=== PATIENT | male | born 1970 | race Caucasian/White ===

== ENCOUNTER 2019-03-29 20:42 | Inpatient (IN) | payer SELFPAY ==
[~2019-03-29] VITALS: Ht 172.7 cm; Wt 77.7 kg
--- NOTE | 2019-03-29 21:05 | Emergency Room Report ---
History of Present Illness General Chief Complaint: Dizziness Source: Patient, EMS Present Illness HPI Patient is a 48-year-old male presents after increased dizziness with standing. Patient had intermittent episodes which improved with supine position. He reports having feeling of dizziness and lightheadedness. He states after lying down he would start to feel better. Patient states that he has had several episodes in the past. He reports having been a smoker. He denies any chest discomfort. He reports having no current symptoms at this time. Patient states that this has intermittent happened in the past. He reports having a normal urine output.Patient denies any vomiting or diarrhea.Patient reports having trouble to [place] from [facility] approximately 2 weeks ago by bus. He was noted to have some discomfort to his left knee. Allergies: Coded Allergies: No Known Allergies (Unverified , 03/29/19) Patient History Past Medical History: see triage record Reviewed Nursing Documentation: PMH: Agreed; PSxH: Agreed Nursing Documentation-PMH Past Medical History: No Stated History Review of Systems All Other Systems: negative except mentioned in HPI Physical Exam Vital Signs Date Time Temp Pulse Resp B/P (MAP) Pulse Ox O2 Delivery O2 Flow Rate FiO2 03/29/19 20:46 98.4 76 18 110/74 (86) 98 Room Air Sp02 EP Interpretation: reviewed, normal General Appearance: normal inspection, well appearing, no apparent distress, alert, GCS 15 Head: atraumatic ENT: normal ENT inspection, hearing grossly normal, normal voice, other - poor dentition Neck: normal inspection, full range of motion, supple, no bony tend Respiratory: normal inspection, lungs clear, normal breath sounds, no respiratory distress, no retraction, no wheezing Cardiovascular #1: regular rate, rhythm, no edema Gastrointestinal: normal inspection, normal bowel sounds, non tender, soft, no guarding, no hernia Genitourinary: no CVA tenderness Musculoskeletal: normal inspection, back normal, normal range of motion, other - left knee cyst near patella Neurologic: normal inspection, alert, oriented x3, responsive, 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 Differential diagnosis include was not limited to dehydration, myocardial infarction, pulmonary embolism, anemia among others. Because of complexity of patient's case laboratory testing and imaging studies were ordered. Patient's laboratory testing showed normal hemoglobin as well as negative troponin. Patient was noted to have elevated d-dimer. CT imaging was ordered due to patient's prior history of recent travel which raises possibility of pulmonary embolism. CT of the chest read by radiology showed right sided pulmonary embolism without significant infiltrate or strain noted.Patient was given IV fluids. Patient was started on a heparin drip. Dr. Lisa Mitchell was contacted for inpatient management Labs Test 03/29/19 21:20 03/29/19 23:05 White Blood Count 8.2 K/UL (4.8-10.8) Red Blood Count 5.12 M/UL (4.70-6.10) Hemoglobin 14.6 G/DL (14.2-18.0) Hematocrit 41.9 % (42.0-52.0) Mean Corpuscular Volume 82 FL (80-99) Mean Corpuscular Hemoglobin 28.5 PG (27.0-31.0) Mean Corpuscular Hemoglobin Concent 34.8 G/DL (32.0-36.0) Red Cell Distribution Width 11.5 % (11.6-14.8) Platelet Count 266 K/UL (150-450) Mean Platelet Volume 5.3 FL (6.5-10.1) Neutrophils (%) (Auto) 64.3 % (45.0-75.0) Lymphocytes (%) (Auto) 27.4 % (20.0-45.0) Monocytes (%) (Auto) 6.1 % (1.0-10.0) Eosinophils (%) (Auto) 1.4 % (0.0-3.0) Basophils (%) (Auto) 0.8 % (0.0-2.0) D-Dimer 0.98 mg/L FEU (0.00-0.49) Sodium Level 141 MMOL/L (136-145) Potassium Level 3.7 MMOL/L (3.5-5.1) Chloride Level 104 MMOL/L (98-107) Carbon Dioxide Level 33 MMOL/L (21-32) Anion Gap 4 mmol/L (5-15) Blood Urea Nitrogen 14 mg/dL (7-18) Creatinine 1.1 MG/DL (0.55-1.30) Estimat Glomerular Filtration Rate > 60 mL/min (>60) Glucose Level 129 MG/DL (74-106) Calcium Level 9.4 MG/DL (8.5-10.1) Total Bilirubin 0.4 MG/DL (0.2-1.0) Aspartate Amino Transf (AST/SGOT) 21 U/L (15-37) Alanine Aminotransferase (ALT/SGPT) 33 U/L (12-78) Alkaline Phosphatase 66 U/L (46-116) Troponin I 0.002 ng/mL (0.000-0.056) Total Protein 6.9 G/DL (6.4-8.2) Albumin 3.9 G/DL (3.4-5.0) Globulin 3.0 g/dL Albumin/Globulin Ratio 1.3 (1.0-2.7) Urine Color Yellow Urine Appearance Clear Urine pH 6 (4.5-8.0) Urine Specific [place] 1.020 (1.005-1.035) Urine Protein 1+ (NEGATIVE) Urine Glucose (UA) Negative (NEGATIVE) Urine Ketones Negative (NEGATIVE) Urine Blood Negative (NEGATIVE) Urine Nitrite Positive (NEGATIVE) Urine Bilirubin Negative (NEGATIVE) Urine Urobilinogen 1 MG/DL (0.0-1.0) Urine Leukocyte Esterase 1+ (NEGATIVE) Urine RBC 0-2 /HPF (0 - 0) Urine WBC 0-2 /HPF (0 - 0) Urine Squamous Epithelial Cells None /LPF (NONE/OCC) Urine Bacteria Few /HPF (NONE) Urine Opiates Screen Negative (NEGATIVE) Urine Barbiturates Screen Negative (NEGATIVE) Phencyclidine (PCP) Screen Negative (NEGATIVE) Urine Amphetamines Screen Negative (NEGATIVE) Urine Benzodiazepines Screen Negative (NEGATIVE) Urine Cocaine Screen Negative (NEGATIVE) Urine Marijuana (THC) Screen Positive (NEGATIVE) EKG Diagnostic Results Rate: normal Rhythm: NSR ST Segments: no acute changes Last Vital Signs Date Time Temp Pulse Resp B/P (MAP) Pulse Ox O2 Delivery O2 Flow Rate FiO2 03/29/19 20:46 98.4 76 18 110/74 (86) 98 Room Air Status: improved Disposition: ADMITTED INPATIENT Condition: Stable Scripts No Active Prescriptions or Reported Meds Segun Laird MD Mar 29, 2019 21:05
--- NOTE | 2019-03-29 21:15 | NUR ---
ED Nurse Note: RECIEVED PT ON [facility] AWAKE, ALERT AND ORIENTED X 4, PT HERE WITH C/O ABD PAIN WITH NAUSEA AND VOMITING X 2 TODAY, PT DENIES CP, SOB, FEVERS OR DIARRHEA, RATES PAIN AT 8/10, PT DNIES ANY MEDICAL HISTORY BUT WHEN EXAMINED PT C/O HAVING CHEST PAIN, MD INFORMED, WILL RESUME CARE ORDERED AND CLOSELY MONITOR.
[2019-03-29 21:52] LABS: ANION GAP 4 mmol/L (5-15); BASOPHILS % (AUTO) 0.8 % (0.0-2.0); BLOOD UREA NITROGEN 14 mg/dL (7-18); CALCIUM 9.4 MG/DL (8.5-10.1); CARBON DIOXIDE 33 MMOL/L (21-32); CHLORIDE 104 MMOL/L (98-107); CREATININE 1.1 MG/DL (0.55-1.30); EOSINOPHILS % (AUTO) 1.4 % (0.0-3.0); HEMATOCRIT 41.9 % (42.0-52.0); HEMOGLOBIN 14.6 G/DL (14.2-18.0); LYMPHOCYTES % (AUTO) 27.4 % (20.0-45.0); MEAN CORPUSCULAR VOLUME 82 FL (80-99); MONOCYTES % (AUTO) 6.1 % (1.0-10.0); NEUTROPHILS % (AUTO) 64.3 % (45.0-75.0); PLATELET COUNT 266 K/UL (150-450); POTASSIUM 3.7 MMOL/L (3.5-5.1); RED BLOOD COUNT 5.12 M/UL (4.70-6.10); RED CELL DISTRIBUTION WIDTH 11.5 % (11.6-14.8); SODIUM 141 MMOL/L (136-145); WHITE BLOOD COUNT 8.2 K/UL (4.8-10.8)
[2019-03-29 21:57] LABS: ALANINE AMINOTRANSFERASE 33 U/L (12-78); ALBUMIN 3.9 G/DL (3.4-5.0); ALBUMIN/GLOBULIN RATIO 1.3 (1.0-2.7); ALKALINE PHOSPHATASE 66 U/L (46-116); ASPARTATE AMINO TRANSFERASE 21 U/L (15-37); BILIRUBIN,TOTAL 0.4 MG/DL (0.2-1.0)
[2019-03-29 22:15] VITALS: BP 119/74
[2019-03-29] MEDS ORDERED: Isovue-370 150ml vial INJ PRN (23:15)
[2019-03-29 23:34] LABS: APPEARANCE,URINE CLEAR; BILIRUBIN, URINE NEGATIVE (NEGATIVE); GLUCOSE, URINE (UA) NEGATIVE (NEGATIVE); KETONES,URINE NEGATIVE (NEGATIVE); LEUKOCYTE ESTERASE ,URINE 1+ (NEGATIVE); NITRITE,URINE POSITIVE (NEGATIVE); PH,URINE 6 (4.5-8.0); PROTEIN,URINE 1+ (NEGATIVE); UROBILINOGEN,URINE 1 MG/DL (0.0-1.0)
[2019-03-29 23:36] LABS: COLOR,URINE YELLOW
--- NOTE | 2019-03-29 23:40 | NUR ---
ED Nurse Note: PT CONTINUES TO REST IN BED QUIETLY, IV SITE PATENT, PT CONTINUES TO C/O HAVING CHEST PAIN AT 8/10, MD IS AWARE, V/S STABLE, PT IS CURRENTLY BEING TAKEN TO IMAGING FOR CTA, WILL RESUME CARE WHEN PT RETURNS TO DEPARTMENT.
[2019-03-30] VITALS (9 sets, daily range): BP systolic 90–108; BP diastolic 51–98
[2019-03-30] MEDS ORDERED: Heparin 5000 units/ml inj IV ONE (00:45)
[2019-03-30] MEDS ORDERED: Heparin 25,000u/D5W 500ml 500 ML IV SCH ×2 (00:45→09:37)
--- NOTE | 2019-03-30 01:45 | NUR ---
ED Nurse Note: PT COMPLETED CTA SCAN, + FOR PE, PT BED CHANGED FROM HALLWAY TO MONITORED BED, PT REMAINS AWAK, ALERT AND ORIENTED X 4, CONTINUES TO C/O CHEST PAIN AT 8/10, MD AWARE, PT TO START ON IV HEPARIN, PT ORDER PLACED, PT HAS PATENT IV LINE, HEPARIN DRIP STARTED ORDERED AFTER BOLUS GIVEN, PT TOLERATING WELL, WILL CONTINUE TO CLOSELY MONITOR AND PREAPRE FOR HOSPITAL ADMISSION.
--- NOTE | 2019-03-30 03:30 | NUR ---
ED Nurse Note: PT CONTINUES TO SLEEP QUIETLY, AROUSES EASILY TO VERBAL STIMULI, PT B/P WAS READING LOW BUT IS POSITIONAL, PT REPOSITIOND TO SUPINE AND B/P IS WNL, IV SITE PATENT WITH HEPARIN INFUSING, SITE INTACT AND PATENT, NO ACUTE CHAGNES OR INCREASED DISTRESS, WILL CONTINUE TO CLOSELY MONITOR AND PREPARE FOR HOSPITAL ADMISSION.
--- NOTE | 2019-03-30 05:00 | NUR ---
ED Nurse Note: left message for md krishna for admitting orders. awaiting callback.
--- NOTE | 2019-03-30 05:15 | NUR ---
ED Nurse Note: PT CONTINUES TO REST QUIETLY, NO DISTRESS OR CHANGES NOTED, HEPARIN IS INFUSING, NO BED AVAILABLE AT THIS TIME, WILL CONTINUE CARE AND MONITORING.
--- NOTE | 2019-03-30 07:10 | NUR ---
ED Nurse Note: recieved pt on bed, asleep. with vital signs with in normal limit. pt respiration equal and unlabored. pt heparin drip is on going. will continue to monitor.
--- NOTE | 2019-03-30 07:54 | NUR ---
ED Nurse Note: pt was admitted to hospital, report given to Cayden SALVADOR,
--- NOTE | 2019-03-30 08:06 | NUR ---
ED Nurse Note: pt was transfered to tele bed, all belongings endorsed to Cayden rn, pt transfered with stable vs.
--- NOTE | 2019-03-30 08:15 | NUR ---
NURSE NOTES: Pt received from Edelmira, RN alert and oriented x4 with no acute s/s of distress noted at this time. No complaints of chest pain or SOB. IV site asymptomatic and patent on R ac 20g, running to Heparin drip as ordered per protocol. sanitarian inspector on - SR. No wounds noted upon assessment. Belongings signed with transferring RN, all with patient at this time including [employer] phones. Bed in lowest position, call light and belongings within reach.
[2019-03-30] MEDS ORDERED: Acetaminophen 500mg (ES) tab ORAL PRN (09:00)
[2019-03-30] MEDS ORDERED: Heparin 5000 units/ml inj IV SCH ×2 (09:37→16:33)
--- NOTE | 2019-03-30 10:53 | Pulmonology Progress Note ---
Assessment/Plan Assessment/Plan Pulmonary Consultation HPI Patient is a 48-year-old male admitted with right sided Pulmonary Embolism, he presented complaining of increased dizziness with standing. Patient had intermittent episodes which improved with supine position. He reports having feeling of dizziness and lightheadedness. He reports having been a smoker. He denies any chest discomfort. He reports having no current symptoms at this time. Patient denies any vomiting or diarrhea.Patient reports having travel to [place] from [facility] approximately 2 weeks ago by bus. He has noted to have some discomfort to his left knee. Allergies: No Known Allergies Past Medical History: No Stated History All Other Systems: negative except mentioned in HPI Physical Exam Vital Signs Noted Date Time Temp Pulse Resp B/P (MAP) Pulse Ox O2 Delivery O2 Flow Rate FiO2 03/29/19 20:46 98.4 76 18 110/74 (86) 98 Room Air General Appearance: normal inspection, well appearing, no apparent distress, alert, GCS 15 Head: atraumatic ENT: normal ENT inspection, hearing grossly normal, normal voice, other - poor dentition Neck: normal inspection, full range of motion, supple, no bony tend Respiratory: normal inspection, lungs clear, normal breath sounds, no respiratory distress, no retraction, no wheezing Cardiovascular: HS1, HS2, normal, egular rate, rhythm, no edema Gastrointestinal: normal inspection, normal bowel sounds, non tender, soft, no guarding, no hernia Genitourinary: no CVA tenderness Musculoskeletal: normal inspection, back normal, normal range of motion, other - left knee cyst near patella Neurologic: normal inspection, alert, oriented x3, responsive, 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, speech normal Psychiatric: normal inspection, judgement/insight normal, mood/affect normal Skin: normal inspection, normal color, no rash Impression: Pulmonary embolism Plan: IV Heparin gtt Transition to coumadin Suggest Hematology Consult O2 PRN Volume challenge PRN for hypotension Monitor labs PPX Labs Test 03/29/19 21:20 03/29/19 23:05 White Blood Count 8.2 K/UL (4.8-10.8) Red Blood Count 5.12 M/UL (4.70-6.10) Hemoglobin 14.6 G/DL (14.2-18.0) Hematocrit 41.9 % (42.0-52.0) Mean Corpuscular Volume 82 FL (80-99) Mean Corpuscular Hemoglobin 28.5 PG (27.0-31.0) Mean Corpuscular Hemoglobin Concent 34.8 G/DL (32.0-36.0) Red Cell Distribution Width 11.5 % (11.6-14.8) Platelet Count 266 K/UL (150-450) Mean Platelet Volume 5.3 FL (6.5-10.1) Neutrophils (%) (Auto) 64.3 % (45.0-75.0) Lymphocytes (%) (Auto) 27.4 % (20.0-45.0) Monocytes (%) (Auto) 6.1 % (1.0-10.0) Eosinophils (%) (Auto) 1.4 % (0.0-3.0) Basophils (%) (Auto) 0.8 % (0.0-2.0) D-Dimer 0.98 mg/L FEU (0.00-0.49) Sodium Level 141 MMOL/L (136-145) Potassium Level 3.7 MMOL/L (3.5-5.1) Chloride Level 104 MMOL/L (98-107) Carbon Dioxide Level 33 MMOL/L (21-32) Anion Gap 4 mmol/L (5-15) Blood Urea Nitrogen 14 mg/dL (7-18) Creatinine 1.1 MG/DL (0.55-1.30) Estimat Glomerular Filtration Rate > 60 mL/min (>60) Glucose Level 129 MG/DL (74-106) Calcium Level 9.4 MG/DL (8.5-10.1) Total Bilirubin 0.4 MG/DL (0.2-1.0) Aspartate Amino Transf (AST/SGOT) 21 U/L (15-37) Alanine Aminotransferase (ALT/SGPT) 33 U/L (12-78) Alkaline Phosphatase 66 U/L (46-116) Troponin I 0.002 ng/mL (0.000-0.056) Total Protein 6.9 G/DL (6.4-8.2) Albumin 3.9 G/DL (3.4-5.0) Globulin 3.0 g/dL Albumin/Globulin Ratio 1.3 (1.0-2.7) Urine Color Yellow Urine Appearance Clear Urine pH 6 (4.5-8.0) Urine Specific [place] 1.020 (1.005-1.035) Urine Protein 1+ (NEGATIVE) Urine Glucose (UA) Negative (NEGATIVE) Urine Ketones Negative (NEGATIVE) Urine Blood Negative (NEGATIVE) Urine Nitrite Positive (NEGATIVE) Urine Bilirubin Negative (NEGATIVE) Urine Urobilinogen 1 MG/DL (0.0-1.0) Urine Leukocyte Esterase 1+ (NEGATIVE) Urine RBC 0-2 /HPF (0 - 0) Urine WBC 0-2 /HPF (0 - 0) Urine Squamous Epithelial Cells None /LPF (NONE/OCC) Urine Bacteria Few /HPF (NONE) Urine Opiates Screen Negative (NEGATIVE) Urine Barbiturates Screen Negative (NEGATIVE) Phencyclidine (PCP) Screen Negative (NEGATIVE) Urine Amphetamines Screen Negative (NEGATIVE) Urine Benzodiazepines Screen Negative (NEGATIVE) Urine Cocaine Screen Negative (NEGATIVE) Urine Marijuana (THC) Screen Positive (NEGATIVE) EKG: Rate: normal Rhythm: NSR ST Segments: no acute changes Subjective ROS Limited/Unobtainable: No Respiratory: Reports: shortness of breath Cardiovascular: Reports: other Allergies: Coded Allergies: No Known Allergies (Unverified , 03/29/19) Objective Last 24 Hour Vital Signs Date Time Temp Pulse Resp B/P (MAP) Pulse Ox O2 Delivery O2 Flow Rate FiO2 03/30/19 08:06 98.4 77 14 91/68 95 Room Air 77 03/30/19 07:10 77 14 91/68 95 Room Air 03/30/19 06:00 98.4 71 17 104/64 100 Room Air 03/30/19 04:30 98.4 74 17 90/68 98 Room Air 03/30/19 03:00 98.4 74 17 99/98 98 Room Air 03/30/19 01:45 98.4 77 17 97/63 95 Room Air 03/30/19 00:00 98.4 76 16 107/70 96 Room Air 03/29/19 22:15 98.4 82 16 119/74 100 Room Air 03/29/19 21:00 76 18 Room Air 03/29/19 20:46 98.4 76 18 110/74 (86) 98 Room Air Laboratory Tests 03/29/19 21:20: White Blood Count 8.2, Red Blood Count 5.12, Hemoglobin 14.6, Hematocrit 41.9L, Mean Corpuscular Volume 82, Mean Corpuscular Hemoglobin 28.5, Mean Corpuscular Hemoglobin Concent 34.8, Red Cell Distribution Width 11.5L, Platelet Count 266, Mean Platelet Volume 5.3L, Neutrophils (%) (Auto) 64.3, Lymphocytes (%) (Auto) 27.4, Monocytes (%) (Auto) 6.1, Eosinophils (%) (Auto) 1.4, Basophils (%) (Auto ) 0.8, Activated Partial Thromboplast Time 23, D-Dimer 0.98H, Sodium Level 141, Potassium Level 3.7, Chloride Level 104, Carbon Dioxide Level 33H, Anion Gap 4L , Blood Urea Nitrogen 14, Creatinine 1.1, Estimat Glomerular Filtration Rate > 60, Glucose Level 129H, Calcium Level 9.4, Total Bilirubin 0.4, Aspartate Amino Transf (AST/SGOT) 21, Alanine Aminotransferase (ALT/SGPT) 33, Alkaline Phosphatase 66, Troponin I 0.002, Total Protein 6.9, Albumin 3.9, Globulin 3.0, Albumin/Globulin Ratio 1.3 03/29/19 23:05: Urine Color Yellow, Urine Appearance Clear, Urine pH 6, Urine Specific [place] 1.020, Urine Protein 1+H, Urine Glucose (UA) Negative, Urine Ketones Negative, Urine Blood Negative, Urine Nitrite PositiveH, Urine Bilirubin Negative, Urine Urobilinogen 1H, Urine Leukocyte Esterase 1+H, Urine RBC 0-2H, Urine WBC 0-2, Urine Squamous Epithelial Cells None, Urine Bacteria Few, Urine Opiates Screen Negative, Urine Barbiturates Screen Negative, Phencyclidine (PCP) Screen Negative, Urine Amphetamines Screen Negative, Urine Benzodiazepines Screen Negative, Urine Cocaine Screen Negative, Urine Marijuana (THC) Screen PositiveH 03/30/19 09:00: Activated Partial Thromboplast Time 53H, Prothrombin Time 10.2, Prothromb Time International Ratio 1.0 Current Medications Medications (Trade) Dose Ordered Sig/Dedra Route PRN Reason Start Time Stop Time Status Last Admin Dose Admin Acetaminophen (Tylenol) 500 mg Q4H PRN ORAL Mild Pain/Temp > 100.5 03/30/19 09:00 04/29/19 08:59 Heparin Sodium (Porcine) (Heparin 5000 units/ml) 3,000 units ONCE IV 03/30/19 09:37 03/30/19 11:00 03/30/19 09:56 Heparin Sodium/ Dextrose 500 ml @ 31.2 mls/hr ADJUST PER PROTOCOL IV 03/30/19 09:37 04/29/19 09:36 03/30/19 09:59 Warfarin Sodium (C[facility] pharmacy) [facility] 03/30/19 21:00 04/29/19 20:59 Warfarin Sodium (Coumadin) 5 mg ONCE ORAL 03/30/19 17:00 03/30/19 19:00 Tadeo Everett MD Mar 30, 2019 10:53
--- NOTE | 2019-03-30 11:05 | NUR ---
Social Service Note SW met with patient to assess for homelessness. Patient is alert, oriented and verbally responsive. Patient states he has been homeless since June. Patient states the contributing factors which led to his homelessness is that he just stepped out of life and left everything behind. Patient states he was able to get some money, and decided to take the bus down from [place] to [place]. Patient didn't have a housing plan and stated he would just figure it out. Patient states he was denied [employer] and [facility] aide because he owns back child support. Patient will be screen for [employer]-[facility] however patient states his intent is to return to [place]. Patient states he will return to area that is familiar which is behind a Cafe that has been closed. Patient doesn't utilize jail, maldonado handle or recycle. Patient states he just has things happen for him. Patient inquired about transportation back to [place]. SW explained that there was a program who helps displaced individuals however there must be a secured location and person to receive them. SW contact [facility] for program information. SW discuss [facility] for medical follow if needed due to patient being non-funded. Patient denies mental health disorder and substance abuse. Patient will return to prior living situation upon discharge. Patient didn't want to provide an emergency contact, confirmed patient's cell phone [phone]. Will continue to monitor and assist as needed.
--- NOTE | 2019-03-30 11:30 | Diagnostic Imaging Report ---
ndication: Dizziness and shortness of breath Technique: IV administration nonionic contrast. Spiral acquisitions obtained from the lung bases to the lung apices. Multiplanar and 3-D reconstructions were generated. Total dose length product 749.54 mGycm. CTDIvol(s) 18.22 mGy. Dose reduction achieved using automated exposure control Comparison: none Findings: There is good quality opacification of the pulmonary arteries. Coronal reconstructed images chest as a small filling defect within the superior segmental right lower lobe branch. No other filling defects are demonstrated. Normal caliber pulmonary arteries. Normal size right ventricle. No evidence of thoracic aortic aneurysm or dissection. Lungs are clear. No infiltrates, masses, effusions, or is minimal posterior dependent atelectasis. The heart size is normal. No pericardial effusion. No mediastinal or hilar mass or adenopathy. Included portion of the thyroid is unremarkable. No axillary or chest wall mass or adenopathy. The included upper abdominal anatomy is unremarkable except for small sliding-type hiatal hernia. Impression: Suspicious for single small superior segment right lower lobe segmental pulmonary embolus No other acute or significant abnormality The CT scanner at [facility] is accredited by the [employer] and the scans are performed using protocols designed to limit radiation exposure to as low as reasonably achievable to attain images of sufficient resolution adequate for diagnostic evaluation.
--- NOTE | 2019-03-30 14:59 | Cardiology Report ---
APPROVED REPORT EXAM: Two-dimensional and M-mode echocardiogram with Doppler and color Doppler. INDICATION Chest Pain M-Mode DIMENSIONS IVSd1.1 (0.7-1.1cm)Left Atrium (MM)3.4 (1.6-4.0cm) LVDd4.0 (3.5-5.6cm)Aortic Root2.1 (2.0-3.7cm) PWd0.9 (0.7-1.1cm)Aortic Cusp Exc.1.5 (1.5-2.0cm) IVSs1.5 cm LVDs2.5 (2.5-4.0cm) PWs1.2 cm Normal left ventricular chamber size, systolic function and wall motion. Left ventricular ejection fraction estimated to be 60-65 %. Borderline left ventricular hypertrophy. No evidence of pericardial effusion. All other cardiac chamber sizes are within normal limits. Normal appearing aortic, mitral, pulmonic and tricuspid valves. Mitral annulus and aortic root calcification. IVC is normal in size with physiological collapse. A color flow and spectral Doppler study was performed and revealed: No aortic regurgitation. mitral regurgitation. Mitral diastolic velocities suggest mild left ventricular diastolic dysfunction (Grade I). Trace tricuspid regurgitation. Tricuspid systolic velocities suggests peak right ventricular systolic pressure of 8 mmHg. Trace pulmonic regurgitation present.
--- NOTE | 2019-03-30 15:24 | Cardiology Report ---
APPROVED REPORT EKG Measurement Heart [id number] Normal sinus rhythm Normal ECG
--- NOTE | 2019-03-30 16:05 | Diagnostic Imaging Report ---
Indications: Chest pain, elevated d-dimer Technique: IV administration 5.3 mCi 99m technetium macroaggregated albumin. Images obtained over the lungs in multiple projections. Previously, patient inhaled 42 mCi aerosolized 99M technetium DTPA. Images obtained over the lungs in multiple projections Comparison: Reference made to chest CT angiogram 03/29/2019 Findings: Aerosol images are somewhat heterogeneous. Perfusion images are similarly somewhat heterogeneous, without definite focal segmental or subsegmental perfusion defect. Specifically, no definite perfusion defect or ventilation perfusion mismatch seen in the territory of the suspected small pulmonary superior segment right lower lobe embolus demonstrated on recent CT pulmonary arteriogram. Impression: No evidence of perfusion/aerosol mismatch to suggest acute pulmonary embolus. Specifically, no findings relatable to suspected small superior segment lower lobe pulmonary embolus seen on recent CT scan. Lack of corresponding perfusion abnormality may indicate that the CT abnormality is nonobstructive, has spontaneously improved, is beneath the sensitivity of nuclear medicine perfusion imaging, or was artifactual
[2019-03-30] MEDS: Heparin 25,000u/D5W 500ml 500 ML IV SCH ×2 (16:53→20:19)
[2019-03-30] MEDS ORDERED: Warfarin Sodium 5mg ORAL SCH (17:00)
--- NOTE | 2019-03-30 20:10 | NUR ---
NURSE NOTES: RN endorsed to Primo from pharm about duplicate entry of Coumadin. Per Primo, "it's duplicate entry, pls nonadmin "Coumadin per pharmacy"
--- NOTE | 2019-03-30 20:20 | NUR ---
HAND-OFF: Report given to MODESTO Lujan. No acute s/s of distress noted.
--- NOTE | 2019-03-30 20:30 | NUR ---
NURSE NOTES: Received report from Cayden RN, pt. in bed awake, A/O x's 4- able to make needs known, no signs or symptoms of acute cardiac or respiratory distress noted, bed in lowest position and call light within easy reach, bed alarm on, side rails up x's2 and safety brakes engaged, pt. able to ambulate with assist, pt. appears to be sating well on room air at 99%- no distress noted, RT. hand 20G running Heparin drip 24U/KG/Hr, Rt. AC 20G running NS at 100cc/hr- both IVs intact and patent. safety measures continued, will continue with plan of care.
--- NOTE | 2019-03-30 23:45 | History and Physical Report ---
DATE OF ADMISSION: 03/30/2019 HISTORY OF PRESENT ILLNESS: The patient is admitted for pulmonary embolism. The patient also has elevated CO2 with normal saturation and was started on heparin drip, was complaining of dizziness and did have syncopal episodes that were followed by diaphoresis, and the patient is also complaining of chest pain that is made worse by deep inspiration. Denies shortness of breath. Denies wheezing. Denies cough. Denies chills. Denies orthopnea. PAST MEDICAL HISTORY: None. PAST SURGICAL HISTORY: None. SOCIAL HISTORY: History of smoking. History of drug abuse. The patient is homeless. MEDICATIONS: None. FAMILY HISTORY: Noncontributory. REVIEW OF SYSTEMS: HEENT: Denies headaches. RESPIRATORY: Denies shortness of breath. Denies cough. CARDIOVASCULAR: Does have chest pain that is made worse with deep inspiration. Denies orthopnea. GASTROINTESTINAL: Denies nausea, vomiting, diarrhea, or heartburn. EXTREMITIES: Denies pain. CENTRAL NERVOUS SYSTEM: No change in vision or speech pattern. Does have syncopal episode followed by diaphoresis. Denies headache. PHYSICAL EXAMINATION: VITAL SIGNS: Temperature 98.4, pulse is 71, and blood pressure 104/64. HEENT: PERRLA. NECK: Supple. No lymphadenopathy. CHEST: Clear to auscultation CARDIOVASCULAR: Regular rate and rhythm. No murmurs or extra sounds. GASTROINTESTINAL: Soft, nontender, and nondistended. No organomegaly. EXTREMITIES: No edema. Moves all four extremities. NEUROLOGIC: Sensation intact to light touch. . Reflexes are equal on both sides. LABORATORY DATA: WBC of 8.2, hemoglobin of 14.6, and platelets of 266. Sodium 141, potassium 3.7, BUN of 14, creatinine 1.2, and glucose of 129. ASSESSMENT AND PLAN: The patient is admitted for pulmonary embolism. He has been consulted by Dr. Pinon, Dr. Liriano, Dr. Nikita Ingram, for the management of pulmonary embolism and rule out DVT as well as for the management, and Dr. Pinon will help with treatment of the elevated carbon dioxide. Lisa Arora M.D. DR: ABRIL JOB#: [id number] CC:
[2019-03-31] VITALS: BP 107/56
--- NOTE | 2019-03-31 | NUR ---
NURSE NOTES: critical value reported for PTT >150- infusion held at midnight for 60 min and will decrease by 4 units in an hours and orders PTT 6 hours from start time. Charge nurse Valerie hay- spoke with Le laureano at [facility].
[2019-03-31] MEDS ORDERED: Heparin 25,000u/D5W 500ml 500 ML IV SCH ×2 (01:15→01:30)
--- NOTE | 2019-03-31 01:25 | NUR ---
NURSE NOTES: just received label [facility]. Also Normal Saline scanned late due to previous bag not empty.
[2019-03-31 04:00] VITALS: BP 106/62
--- NOTE | 2019-03-31 05:06 | NUR ---
NURSE NOTES: Called Dr. Arora regarding patient wanting to leave AMA citing, "I'm homeless anyway where am I gonna go?" Risks and benefits explained; still insistent on leaving. Awaiting callback.
--- NOTE | 2019-03-31 06:42 | NUR ---
NURSE NOTES: Received callback from Dr. Arora that patient is not safe for discharge and to let Dr. Ingram aware that patient wants to leave AMA. Noted and carried out.
--- NOTE | 2019-03-31 07:15 | NUR ---
HAND-OFF: Report given to Cliff RN, pt. remains stable and signs of distress noted. Aware pt. wants to go AMA and DR. Lundberg aware and wants nurse to inform DR. Castano. Nurse aware to f/u.
[2019-03-31 08:00] VITALS: BP 100/50
--- NOTE | 2019-03-31 08:07 | NUR ---
NURSE NOTES: pt wants to leave ama, waited for rx, seen by dr Ingram, given rx, per patient doesnt wanna wait for pharmacy to fill it stating "i dont have insurance for it anyway" original rx given to pt, copy in the chart pt in stable condition, removed iv from right forearm, no bleeding. dr Arora also aware of this.
--- NOTE | 2019-03-31 08:08 | NUR ---
NURSE NOTES: pt will go to [facility] where he lives, no address given, nicholas pardo form signed. Addendum: 03/31/19 at 0815 by EDEL MORSE RN risks and benefits explained re patient's diagnosis to pt as well as Dr Ingram did teaching at bedside. pt still wanted to go. pt left in stable condition.
--- NOTE | 2019-03-31 14:19 | Consultation ---
History of Present Illness General Date patient seen: Mar 31, 2019 Chief Complaint: Dizziness Present Illness Allergies: Coded Allergies: No Known Allergies (Unverified , 03/29/19) Medication History No Active Prescriptions or Reported Meds Patient History Healthcare decision maker Resuscitation status Full Code Advanced Directive on File Physical Exam Last 24 Hour Vital Signs Date Time Temp Pulse Resp B/P (MAP) Pulse Ox O2 Delivery O2 Flow Rate FiO2 03/31/19 08:00 98.3 80 20 100/50 (67) 98 03/31/19 04:00 66 03/31/19 04:00 98.3 86 20 106/62 (77) 98 86 03/31/19 00:00 98.5 84 18 107/56 (73) 97 84 03/30/19 23:57 80 03/30/19 21:00 Room Air 03/30/19 20:00 77 03/30/19 20:00 98.2 91 20 108/51 (70) 96 91 03/30/19 16:00 87 Intake and Output 03/30/19 03/31/19 19:00 07:00 Intake Total 737.28 ml 1193.96 ml Output Total 1100 ml 1050 ml Balance -362.72 ml 143.96 ml IV Total 737.28 ml 1193.96 ml Output Urine Total 1100 ml 1050 ml # Bowel Movements 1 Laboratory Tests Test 03/30/19 15:30 03/30/19 23:00 03/31/19 07:30 Activated Partial Thromboplast Time 47 SEC (23-33) H > 150 SEC (23-33) *H 90 SEC (23-33) H Prothrombin Time 10.4 SEC (9.30-11.50) Prothromb Time International Ratio 1.0 (0.9-1.1) Height (Feet): 5 Height (Inches): 8.00 Weight (Pounds): 171 Assessment/Plan Assessment/Plan: HEMATOLOGY/ONCOLOGY CONSULTATION DATE OF CONSULT: 03/31/2019 REFERRING PHYSICIAN: Lisa Arora REASON FOR CONSULT: DVT, PE HISTORY OF PRESENT ILLNESS: 48 y old male, the patient is admitted for pulmonary embolism. The patient also has elevated CO2 with normal saturation and was started on heparin drip, was complaining of dizziness and did have syncopal episodes that were followed by diaphoresis. Patient is also complaining of chest pain that is made worse by deep inspiration. Denies shortness of breath. Denies wheezing. Denies cough. Denies chills. Denies orthopnea. Hematology services were consulted for the evaluation of PE and to r/ o DVT. . Current INR of 1.0 PAST MEDICAL HISTORY: None. PAST SURGICAL HISTORY: None. SOCIAL HISTORY: History of smoking. History of drug abuse. The patient is homeless. FAMILY HISTORY: Noncontributory. REVIEW OF SYSTEMS: HEENT: Denies headaches. RESPIRATORY: Denies shortness of breath. Denies cough. CARDIOVASCULAR: Does have chest pain that is made worse with deep inspiration. Denies orthopnea GASTROINTESTINAL: Denies nausea, vomiting, diarrhea, or heartburn. EXTREMITIES: Denies pain. CENTRAL NERVOUS SYSTEM: No change in vision or speech pattern. Does have syncopal episode followed by diaphoresis. Denies headache. PHYSICAL EXAMINATION: VITAL SIGNS: Have been reviewed HEENT: KEN. NECK: Supple. No lymphadenopathy. CHEST: Clear to auscultation CARDIOVASCULAR: Regular rate and rhythm. No murmurs or extra sounds. GASTROINTESTINAL: Soft, nontender, and nondistended. No organomegaly. EXTREMITIES: No edema. Moves all four extremities. NEUROLOGIC: Sensation intact to light touch. Reflexes are equal on both sides. LABORATORY DATA: WBC of 8.2, hemoglobin of 14.6, and platelets of 266. Sodium 141, potassium 3.7 , BUN of 14, creatinine 1.2, and glucose of 129. ASSESSMENT AND RECOMMENDATIONS # Pulmonary Embolism. Has been started on apixaban. this was noted on V/Q imaging as well as CTA --> will need to begin long-term anticoagulation with coumadin or xarelto or eliquis (this depends on patient preference and/or insurance type) --> consider hypercoagulable/thrombophilia workup if patient <50 and no other cause of dvt/pe and patient has children who may inherit it --> have written for a prescription of this medication and have handed it to the patient # Anemia of chronic disease --> mild at this time, okay for anticoagulation # Coagulopathy due to heparin drip --> now off of it and will start xarelto # Hyperglycemia --> r/o DM2 # Marjuana use --> recommend cessation # UTi give abx as needed The time the note is entered does not reflect the time the patient was examined. Greatly appreciate consultation. Nikita Ingram MD Mar 31, 2019 14:19
--- NOTE | 2019-03-31 14:35 | NUR ---
CASE MANAGEMENT:REVIEW 48 YR OLD MALE BIBA FROM HOME CC: DIZZINESS AND NEAR SYNCOPE. NAUSEA AND VOMITING. CHEST PAIN SI: PULMONARY EMBOLI 98.4 76 18 110/74 98% ON RA D-DIMER+0.98 PTT+53 INR-1.0 IS: 1L NS BOLUS IV HEPARIN GTT CTA CHEST : TO TELEMETRY INTERQUAL CRITERIA MET
--- NOTE | 2019-04-01 09:13 | Discharge Summary ---
Discharge Summary Discharge Summary _ DATE OF ADMISSION: 03/30/2019 DATE OF DISCHARGE: 03/31/2019 DISCHARGED BY: Dr. Lisa Mckeon CONSULTANTS: Dr. Nikita Everett BRIEF HOSPITAL COURSE: Patient is a 48-year-old male, who presented to ED via EMS due to increased dizziness with standing. The patient had intermittent episodes which improved with supine position. He reported feeling lightheaded and dizziness. He stated after laying down, he would start to feel better. He had several similar episodes in the past. He reported being a smoker. He denies chest discomfort. He stated he had normal urine output. He denied any vomiting or diarrhea. He recently traveled via a bus from [facility] approximately 2 weeks prior. He had some discomfort to the left knee. On evaluation at the ED, vital signs were stable. Blood work did not show any leukocytosis. Hemoglobin and hematocrit were stable. D-dimer was elevated to 0.98 . Electrolytes were normal. Troponin was negative. Urinalyses with +1 leukocyte esterase, 0-2 urine RBC, 0-2 urine WBC and positive nitrite. Urine toxicology screen was positive for THC. Due to elevated d-dimer, CT of the chest read by radiologist showed suspicious for single small superior segment right lower lobe segmental PE. He was started on heparin drip. He was then admitted for acute PE. Import/Export Analyst and lunchroom aide were consulted. Patient was started on warfarin bridged with heparin. VQ scan did not show any evidence of perfusion/aerosol mismatch to suggest acute pulmonary embolus. Echocardiogram showed left jugular ejection fraction 60 to 65%. No aortic regurgitation. Full treatment was not carried out as patient left against medical advise. FINAL DIAGNOSES: Acute pulmonary embolism Anemia of chronic disease Coagulopathy due to heparin drip Hyperglycemia Marijuana use UTI DISPOSITION: Patient left against medical advise. I have been assigned to complete a discharge summary on this account, I was not involved with the patient's management. Svetlana Del Rio NP Apr 01, 2019 09:13
--- NOTE | 2019-04-02 09:34 | Diagnostic Imaging Report ---
APPROVED REPORT CPT Code: 39324 Present Symptoms Comments: CHEST PAIN BILATERAL: Imaging reveals a patent deep venous system bilaterally. There is no evidence of thrombus within the common femoral, superficial femoral, popliteal or tibial segments. The greater saphenous veins are within normal limits. Doppler indicates normal spontaneous flow within these segments.
== END 2019-03-31 08:14 | disposition left against medical advice (07) | DRG 176 ==
LOC: EDBD 20:42 → EMR 20:59 → 2E 03-30 00:56 → EDBEDREQ 03-30 06:00
DX: I26.99 Other pulmonary embolism without acute cor pulmonale (principal); N39.0 Urinary tract infection, site not specified; D68.8 Other specified coagulation defects; D63.8 Anemia in other chronic diseases classified elsewhere; R73.9 Hyperglycemia, unspecified; T45.515A Adverse effect of anticoagulants, initial encounter; Z59.0 Homelessness; F12.90 Cannabis use, unspecified, uncomplicated
CPT/HCPCS: 36415; 71275; 78579; 78580; 80053; 80307; 81001; 83880; 84484; 85025; 85379; 85610; 85730; 93005; 93306; 93970; 96361; 96374; 96376; 99285; A9503